=== PATIENT | female | born 1960 | race Caucasian/White ===

== ENCOUNTER 2019-12-08 15:18 | Emergency (ER) | payer SELFPAY ==
[2019-12-08 15:26] VITALS: BP 184/102; PULSE 97; RESP 26; TEMP 36.8; O2SAT 98; BMI 36.8
--- NOTE | 2019-12-08 15:33 | XRR_ITS ---
PROCEDURE INFORMATION: Exam: XR Right Hip with Pelvis when Performed Exam date and time: 12/08/2019 3:59 PM Age: 59 years old Clinical indication: Injury or trauma; Fall; Initial encounter; Blunt trauma (contusions or hematomas); Right; Hip TECHNIQUE: Imaging protocol: XR Right hip with pelvis when performed. Views: 1 view. COMPARISON: No relevant prior studies available. FINDINGS: Bones/joints: There are moderate degenerative changes right hip and moderate to severe degenerative changes right sacroiliac joint. The bone density is appropriate. No acute fracture or dislocation. No bony destructive changes. Soft tissues: There is soft tissue edema lateral to the hip. No foreign body. No gas in the soft tissues. Other findings: No periosteal reaction. No osteomyelitis. XR/XR hip RT 2-3V wo/w pel* [id number] IMPRESSION: No acute bony abnormality.
--- NOTE | 2019-12-08 15:36 | W.ED.EXTPRO ---
HPI - Extremity Problem General: Chief complaint: Extremity Injury, Lower Stated complaint: fall Time Seen by Provider: 12/08/19 15:25 History of Present Illness: HPI Narrative: Patient fell out of a hammock and landed on her right hip. She complains of severe ear pain to the right hip. She denies any other injury. MD Complaint: joint pain Onset (ago): minute(s) Pain Consistency: constant Location: right and lower extremity Quality: stabbing, sharp and constant Radiation: none Relieving factors: nothing Exacerbating factors: range of motion and palpation Associated symptoms: Reports no associated symptoms Review of Systems General: Reports: 10 or more systems reviewed and unremarkable except in HPI and below PFSH ED PFSH: Social History Smoking and tobacco status: never smoked Physical Exam Const: COMMON NORMALS: healthy appearing, alert and well nourished GENERAL APPEARANCE: in distress HENMT: COMMON NORMALS: normocephalic, atraumatic, external ears normal, EAC's normal, TM's normal bilaterally, Normal external nose present and Normal nasal mucous membranes and turbinates present HEAD & SCALP: normal to inspection, normocephalic and atraumatic NOSE: Normal external nose present and Normal nasal mucous membranes and turbinates present EXTERNAL EAR: Yes external ears normal EXTERNAL AUDITORY CANAL: EAC's normal TYMPANIC MEMBRANE: TM's normal bilaterally Eye: COMMON NORMALS: Equal, round and reactive pupils present, EOMs intact bilaterally, conjunctivae normal, no scleral icterus, no papilledema, normal visual gu by confrontation and fundi normal bilaterally GENERAL EYE: appearance normal, both eyes and all related structures CONJUNCTIVA: Yes conjunctivae normal PUPIL: Yes Equal, round and reactive pupils present DIRECT OPHTHALMOSCOPY: Yes no papilledema and Yes fundi normal bilaterally Neck/C-Spine: COMMON NORMALS: full ROM, no lymphadenopathy, no meningeal signs and Thyroid normal GENERAL: Yes normal visual inspection THYROID: Thyroid normal CERVICAL SPINE: Yes cervical ROM normal and Yes normal cervical lordosis Chest: COMMONS NORMALS: normal inspection of the chest and normal palpation of entire chest wall Resp: COMMON NORMALS: normal respiratory effort, clear to auscultation bilaterally and percussion normal AUSCULTATION: clear to auscultation bilaterally PERCUSSION: percussion normal Cardio: COMMON NORMALS: regular rate, regular rhythm, S1 normal heart sound present, S2 normal heart sound present and Peripheral pulses 2+ throughout JUGULAR VENOUS DISTENTION: no JVD PALPATION: normal PMI RATE: regular rate RHYTHM: regular rhythm HEART SOUNDS: S1 normal heart sound present and S2 normal heart sound present PERIPHERAL PULSES: Peripheral pulses 2+ throughout GI: COMMON NORMALS: Soft to palpation and No hepatosplenomegaly present INSPECTION: Yes normal to inspection PALPATION: Yes Soft to palpation and Yes No hepatosplenomegaly present PERCUSSION: normal to percussion : COMMON NORMALS: Yes no CVA tenderness BLADDER/KIDNEY EXAM: Yes no CVA tenderness Back/Pelvis: COMMON NORMALS: no CVA tenderness, thoracic and lumbar spine normal to inspection and thoraco-lumbar ROM normal Extremity: NARRATIVE EXTREMITY EXAM: Patient holds her right leg flexed at the knee. She complains of severe pain with any movement or palpation. Neuro: SENSORIUM/ORIENTATION: Yes alert and Yes somnolent MENINGEAL SIGNS: Yes no meningeal signs Skin: COMMON NORMALS: no rashes or lesions noted, no wounds and turgor normal GENERAL SKIN EXAM: no rashes or lesions noted, elasticity normal and turgor normal LESIONS: no lesions RASHES: no rashes TRAUMA: no lacerations or abrasions HAIR: normal NAILS: normal Course Vital Signs: Vital signs: Vital Signs Temperature 98.3 F 12/08/19 15:26 Pulse Rate 97 12/08/19 15:26 Respiratory Rate 18 12/08/19 15:51 Blood Pressure 184/102 12/08/19 15:26 Pulse Oximetry 98 12/08/19 15:26 MDM - Extremity (Nontraumatic) MDM Narrative: Medical decision making narrative: Plain x-rays of the right hip along with subsequent CAT scan of the right hip reveals no acute bony abnormality Discharge Plan Discharge Patient Disposition: Home, Self-Care Clinical Impression: Contusion of hip Qualifiers: Encounter type: initial encounter Laterality: right Qualified Code(s): S70.01XA - Contusion of right hip, initial encounter Condition: Stable Prescriptions: New tramadol 50 mg tablet 50 mg PO Q4H PRN (Reason: pain) Qty: 20 RF: 0 No Action aspirin 81 mg Tablet,Delayed Release (Dr/Ec) 81 mg PO DAILY RF: 0 flaxseed oil 1,000 mg Capsule 1,000 mg PO DAILY RF: 0 cod liver oil 1,250-135 unit Capsule 1 cap PO DAILY RF: 0 Discharge Orders: Discharge Order (Routine); Ordered 12/08/19 Ordered By: Bebo García Referrals: Mere Lau MD [Primary Care Provider] - Coding Level of Care Code ED Health Care Manager for Chg Fwd Exam Comprehensive
[2019-12-08 15:51] VITALS: RESP 18
[2019-12-08] MEDS: morphine 4 mg/mL SDV 1 mL IVP (15:51)
[2019-12-08] MEDS: ondansetron 2 mg/ML SDV 2 mL 4 MG IVP (15:52)
--- NOTE | 2019-12-08 16:07 | CTR_ITS ---
PROCEDURE INFORMATION: Exam: CT Right Lower Extremity Without Contrast, Hip Exam date and time: 12/08/2019 4:25 PM Age: 59 years old Clinical indication: Injury or trauma; Fall; Initial encounter; Abrasion; Hip; Right TECHNIQUE: Imaging protocol: CT of the Right lower extremity without contrast was performed. Exam focused on the hip. Radiation optimization: All CT scans at this facility use at least one of these dose optimization techniques: automated exposure control; mA and/or kV adjustment per patient size (includes targeted exams where dose is matched to clinical indication); or iterative reconstruction. COMPARISON: CR (PELVIS, ) 12/08/2019 3:45 PM RADIATION DOSE METRICS: Total DLP (mGy-cm): 2058.55 FINDINGS: Bones/joints: There are moderate degenerative changes in the right hip. No evidence of avascular necrosis of the hip. No acute fracture or dislocation. Soft tissues: There is mild subcutaneous edema lateral to the hip. No joint effusion or soft tissue fluid collection is identified. No gas in the soft tissues. No foreign body. CT/CT hip RT wo con* [id number] IMPRESSION: No acute bony abnormality. Radiation Dose CTDIVOL = (mGy): DLP = 2058.55 (mGy-cm)
--- NOTE | 2019-12-08 16:44 | PC.NURSE ---
patient returned from ct, no needs voiced
[2019-12-08 17:52] VITALS: BP 161/78; PULSE 75; RESP 20; O2SAT 95
== END 2019-12-08 17:55 | disposition home or self-care (01) ==
PROVIDERS: Emergency Provider Family Medicine; PCP Family Medicine
DX: S70.01XA Contusion of right hip, initial encounter (principal); Z79.82 Long term (current) use of aspirin; W17.89XA Other fall from one level to another, initial encounter
CPT/HCPCS: 12345; 73502; 73700; 96374; 96375; 99281; 99283; J2270; J2405

== ENCOUNTER → 2020-03-19 14:22 | Outpatient (BNVA) | payer OTHER, SELFPAY | PROVIDERS: PCP Family Medicine; Visit Provider Nurse Practitioner Family | DX: Z20.828 Contact with and (suspected) exposure to other viral communicable diseases (principal) | CPT/HCPCS: 87635 ==